=== PATIENT | male | born 1955 | race Caucasian/White ===

== ENCOUNTER → 2016-10-31 | Outpatient (CLI) | payer BC ==
[~2016-10-31] MED LIST: DULERA1 AR1 IH; FLONASEALLERGY NS; PROAIR HFA0.09 MG/AC IH
== END ==
LOC: COL.RAD 08:38
DX: C90.00 Multiple myeloma not having achieved remission (principal); I71.2 Thoracic aortic aneurysm, without rupture; K44.9 Diaphragmatic hernia without obstruction or gangrene; K22.8 Other specified diseases of esophagus
CPT/HCPCS: A9585; Q9967

== ENCOUNTER → 2017-08-30 | Outpatient (CLI) | payer BC | LOC: COL.RAD 13:36 | DX: C43.20 Malignant melanoma of unspecified ear and external auricular canal (principal) | CPT/HCPCS: Q9967 ==

== ENCOUNTER → 2018-08-04 | Outpatient (CLI) | payer BC | LOC: COL.RAD 07-07 09:45 | DX: C43.20 Malignant melanoma of unspecified ear and external auricular canal (principal); K80.20 Calculus of gallbladder without cholecystitis without obstruction; N20.0 Calculus of kidney; G93.89 Other specified disorders of brain | CPT/HCPCS: A9585; Q9967 ==

== ENCOUNTER → 2019-10-07 | Outpatient (CLI) | payer BC | LOC: ZCOL.LAB 16:53 | DX: Z20.828 Contact with and (suspected) exposure to other viral communicable diseases (principal) ==

== ENCOUNTER → 2020-08-01 | Outpatient (CLI) | payer BC ==
[~2020-08-01] MED LIST changes: +CRUTCHES MC; +FLOMAX 0.40.4 MG/CAP PO; +LEVOXYL0.025 MG PO; +OXYGEN NASAL.CANN; +PERCOCET 325 MG1 TA2 PO; +PREDNISONE20 MG PO; +PRINIVIL10 MG PO; +SYNTHROID0.05 MG/TA PO; +ZOFRAN ODT4 MG PO
== END ==
LOC: COL.RAD 13:57
DX: J98.4 Other disorders of lung (principal); K44.9 Diaphragmatic hernia without obstruction or gangrene
CPT/HCPCS: Q9967

== ENCOUNTER 2020-08-03 09:20 | Observation (INO) | payer BC ==
[~2020-08-03] VITALS: Ht 190.5 cm; Wt 110.0 kg
[~2020-08-03 09:20] MED LIST changes: -CRUTCHES MC; -FLOMAX 0.40.4 MG/CAP PO; -LEVOXYL0.025 MG PO; -OXYGEN NASAL.CANN; -PERCOCET 325 MG1 TA2 PO; -PREDNISONE20 MG PO; -PRINIVIL10 MG PO; -SYNTHROID0.05 MG/TA PO; -ZOFRAN ODT4 MG PO
[2020-08-03 10:01] LABS: ARTERIAL BLD GAS O2 SATURATION 94.4 % (92-100); ARTERIAL BLD GAS TCO2 CT 25.6; ARTERIAL BLOOD GAS BASE EXCESS 1.7 (-2-2); ARTERIAL BLOOD GAS HCO3 24.6 meq/L (22-26); ARTERIAL BLOOD GAS PCO2 33.4 mmHg (35-45); ARTERIAL BLOOD GAS PO2 66.1 mmHg (80-100); ARTERIAL BLOOD GAS pH 7.49 (7.35-7.45)
[2020-08-03 10:12] LABS: ALANINE AMINOTRANSFERASE 23 U/L (4-49); ALBUMIN 3.5 gm/dL (3.5-5.0); ALKALINE PHOSPHATASE 60 U/L (50-136); ANION GAP 6 mmol/L (7-16); AST,SGOT 22 U/L (15-37); BILIRUBIN,TOTAL 0.5 mg/dL (0.0-1.0); BLOOD UREA NITROGEN 15 mg/dL (9-20); CALCIUM 8.2 mg/dL (8.4-10.2); CARBON DIOXIDE 28 mmol/L (22-30); CHLORIDE 104 mmol/L (98-107); CREATININE, serum 0.54 (0.66-1.25); GLUCOSE 120 mg/dL (74-106); LIPASE 104 U/L (23-300); POTASSIUM 3.6 mmol/L (3.4-5.0); SODIUM 139 mmol/L (137-145); TOTAL PROTEIN 6.6 gm/dL (6.4-8.2)
[2020-08-03 10:20] LABS: BASO % 0.2 % (0.0-2.0); EOS % 0.1 % (0-4.0); GRAN # 9.3 (1.4-6.5); GRAN % 86.4 % (42.2-75.2); HEMOGLOBIN 13.8 g/dl (13.5-18.0); LYMPH # 0.5 (1.2-3.4); LYMPH % 4.8 % (20.0-51.0); MEAN CELL VOLUME 93 fl (80.0-100.0); MEAN CORPUSCULAR HEMOGLOBIN 31 pg (27.0-31.0); MEAN CORPUSCULAR HGB CONC 34 g/dl (33.0-37.0); MEAN PLATELET VOLUME 9.7 fl (7.4-10.4); MONO # 0.8 (0.1-0.6); MONO % 7.7 % (1.7-9.3); PLATELET COUNT 250 K/mm3 (130-400); RED BLOOD COUNT 4.41 M/mm3 (4.20-5.60); REDCELL DISTRIBUTION WIDTH-CV 13.3 % (11.5-14.5)
[2020-08-03 10:29] LABS: TROPONIN-I < 0.012 ng/mL (0.000-0.035)
[2020-08-03 10:40] LABS: INR 1.2 (0.8-3.0); PROTHROMBIN TIME 12.9 SECONDS (9.7-12.8)
[2020-08-03] MEDS ORDERED: PREDNISONE20 MG PO ×2 (12:50→14:14)
[2020-08-03] MEDS ORDERED: SYNTHROID0.05 MG/TA PO (12:51)
[2020-08-03] MEDS ORDERED: LEVOXYL0.025 MG PO (12:53)
[2020-08-03] MEDS ORDERED: PRINIVIL10 MG PO (12:54)
[2020-08-03 13:42] VITALS: BP 125/84; PULSE 61; TEMP 97.3
--- NOTE | 2020-08-03 15:02 | NUR ---
pt walked approximetly 300 feet. 3;pm/nc was required to reach an spow of 94%. Pt states he feels SOA while ambulating.
[2020-08-03] MEDS ORDERED: OXYGEN NASAL.CANN (15:33)
--- NOTE | 2020-08-03 16:34 | NUR ---
Hospitalist staffed with this Police Liaison. The patient is discharging and qualifies for oxygen. ALIZA met with the patient and his to discuss DME options. They chose [facility]. ALIZA faxed oxygen order to Angelina with [employer]. ALIZA contacted Angelina. She reports that [facility] is on his way to deliver the a tank for the patient. ALIZA contacted the patient's nurse and he reports the patient has a BiPAP and will need an adapter. The patient's nurse informed [facility] and they will get the adapter to the patient once he is at home. ALIZA collaborated the above information with the patient's nurse. No additional needs.
--- NOTE | 2020-08-03 16:56 | NUR ---
Pt discharged to home, discussed discharge packet with Pt answered questions. PCT escorted Pt to entrance via WC, Pt left with spouse via private transportation.
[2021-01-14] MEDS ORDERED: ZOFRAN ODT4 MG PO (08:54)
[2021-01-14] MEDS ORDERED: FLOMAX 0.40.4 MG/CAP PO (08:54)
[2021-01-14] MEDS ORDERED: PERCOCET 325 MG1 TA2 PO (08:54)
== END 2020-08-03 16:58 | disposition home or self-care (01) ==
LOC: COL.ER 09:20 → MEDICAL 10:55
PROVIDERS: Emergency Medicine; ADMIT Hospitalist
DX: J96.02 Acute respiratory failure with hypercapnia (principal); J45.909 Unspecified asthma, uncomplicated; I10 Essential (primary) hypertension; E03.9 Hypothyroidism, unspecified; G47.33 Obstructive sleep apnea (adult) (pediatric); K85.90 Acute pancreatitis without necrosis or infection, unspecified; K21.9 Gastro-esophageal reflux disease without esophagitis; E03.2 Hypothyroidism due to medicaments and other exogenous substances; Z99.89 Dependence on other enabling machines and devices; Z85.828 Personal history of other malignant neoplasm of skin; Z90.49 Acquired absence of other specified parts of digestive tract; Z80.8 Family history of malignant neoplasm of other organs or systems
CPT/HCPCS: G0378

== ENCOUNTER 2020-12-01 12:36 | Emergency (ER) | payer BC ==
[~2020-12-01] VITALS: Ht 190.5 cm; Wt 111.4 kg
[~2020-12-01 12:36] MED LIST changes: +LEVOXYL0.025 MG PO; +OXYGEN NASAL.CANN; +PREDNISONE20 MG PO; +PRINIVIL10 MG PO; +SYNTHROID0.05 MG/TA PO
[2020-12-01 13:04] VITALS: TEMP 98.5
[2020-12-01] MEDS ORDERED: CRUTCHES MC (14:20)
[2020-12-01 14:37] VITALS: BP 137/90; PULSE 73
[2021-01-14] MEDS ORDERED: ZOFRAN ODT4 MG PO (08:54)
[2021-01-14] MEDS ORDERED: FLOMAX 0.40.4 MG/CAP PO (08:54)
[2021-01-14] MEDS ORDERED: PERCOCET 325 MG1 TA2 PO (08:54)
== END 2020-12-01 14:42 | disposition home or self-care (01) ==
LOC: COL.ER 12:36
DX: M66.0 Rupture of popliteal cyst (principal); I10 Essential (primary) hypertension; J45.909 Unspecified asthma, uncomplicated

== ENCOUNTER 2021-02-06 10:33 | Outpatient (RCR) | payer BC ==
[~2021-02-06 10:33] MED LIST changes: +CRUTCHES MC; +FLOMAX 0.40.4 MG/CAP PO; +PERCOCET 325 MG1 TA2 PO; +ZOFRAN ODT4 MG PO
== END 2021-02-20 08:33 ==
LOC: PT.GENESIS 10:33
DX: M17.12 Unilateral primary osteoarthritis, left knee (principal)

== ENCOUNTER 2021-03-13 10:15 | Outpatient (RCR) | payer BC | END 2021-03-24 | disposition home or self-care (01) | LOC: PT.GENESIS | DX: Z96.652 Presence of left artificial knee joint (principal) ==

== ENCOUNTER 2021-03-27 09:00 | Outpatient (RCR) | payer MEDICARE, BC | END 2021-04-03 08:58 | disposition home or self-care (01) | LOC: PT.GENESIS 09:00 | DX: Z96.652 Presence of left artificial knee joint (principal) ==

== ENCOUNTER → 2021-08-03 | Outpatient (CLI) | payer MEDICARE | LOC: COL.RAD 06:39 | DX: C43.9 Malignant melanoma of skin, unspecified (principal); C79.31 Secondary malignant neoplasm of brain; R91.1 Solitary pulmonary nodule | CPT/HCPCS: A9575; Q9967 ==